=== PATIENT | female | born 1990 | race Caucasian/White ===

== ENCOUNTER 2020-05-17 09:41 | Emergency (ER) | payer OTHER, SELFPAY ==
[2020-05-17 09:45] VITALS: BP 117/82; PULSE 85; RESP 16; TEMP 36.6; O2SAT 97; BMI 49.4
--- NOTE | 2020-05-17 09:57 | ED.GENADULT ---
HPI - General Adult General Chief complaint: Abdominal Pain Stated complaint: RUQ abdominal pain started Time Seen by Provider: 05/17/20 09:46 Source: patient Mode of arrival: Ambulatory Limitations: no limitations History of Present Illness HPI narrative: Patient is a 29-year-old female here for evaluation of approximately 2 days of right upper quadrant abdominal pain. She states that moving and palpation and eating makes her symptoms worse. She has had her gallbladder removed several years ago however she states that it feels somewhat like that. No change in bowel habits. No urinary symptoms. No fevers. No skin rashes. Has not tried anything for her symptoms accepted decreasing her oral intake. Related Data Home Medications Medication Instructions Recorded Confirmed buspirone 10 mg PO TID PRN 05/17/20 05/17/20 ergocalciferol (vitamin D2) 1,250 mcg PO QWEEK 05/17/20 05/17/20 fluoxetine 80 mg PO DAILY 05/17/20 05/17/20 Allergies Allergy/AdvReac Type Severity Reaction Status Date / Time prochlorperazine Allergy Severe Shakiness Verified 05/17/20 09:58 [From Compazine] Review of Systems Constitutional Constitutional: Denies fatigue, Denies fever(s) and Denies headache(s) ENT Ears, Nose, Mouth, and Throat: Denies headache(s) Cardiovascular Cardiovascular: Denies chest pain and Denies dyspnea Respiratory Respiratory: Reports pain on inspiration and Denies dyspnea Gastrointestinal Gastrointestinal: Reports abdominal pain, Denies bloating, Denies change in bowel habits, Denies constipation, Denies diarrhea, Denies nausea and Denies vomiting Genitourinary Genitourinary: Denies dysuria Genitourinary: Denies dysuria Musculoskeletal Musculoskeletal: Denies arthralgias and Denies myalgias Integumentary/Breasts Skin/Breast: Denies rash Neurologic Neurologic: Denies behavioral changes and Denies headache(s) Psychiatric Psychiatric: Denies behavioral changes Endocrine Endocrine: Denies fatigue Hematologic/Lymphatic On Anticoagulants: No Allergic/Immunologic Allergic/Immunologic: Denies urticaria Patient History Medical History (Updated 05/17/20 @ 11:07 by Cortez Livingston DO) Anxiety Depression Surgical History (Updated 05/17/20 @ 10:00 by Yanely Hall RN) History of History of cholecystectomy Hx laparoscopic cholecystectomy Social History lives independently: Yes Smoking Status: Never smoker Exam Initial Vital Signs Initial Vital Signs: Vital Signs Temperature 97.9 F 05/17/20 09:45 Pulse Rate 85 05/17/20 09:45 Respiratory Rate 16 05/17/20 09:45 Blood Pressure 117/82 05/17/20 09:45 Pulse Oximetry 97 05/17/20 09:45 Const General: cooperative and comfortable Limitations: mental status not altered HENMT Head: normal to inspection and normocephalic Chest Chest: No crepitus and No tenderness Resp Effort & Inspection: normal respiratory effort Auscultation: clear to auscultation bilaterally Cardio Rate: regular rate Rhythm: regular rhythm GI Inspection: non-distended Palpation: soft, No firm and tender (Right upper quadrant) Back/Spine/Pelvis Back: No CVA tenderness Skin Lesions: no lesions Rashes: no rashes Neuro General: patient alert, patient awake and patient oriented x3 Cognition: normal cognition Speech: speech normal Extrem General: normal to inspection and capillary refill normal Psych Appearance: grossly normal and well kempt Scores GCS [place] coma scale eye opening: Spontaneous [place] coma scale verbal response: Orientated [place] coma scale motor response: Obey commands [place] coma scale total score: 15 Course Orders Ordered: ED Orders 05/17/20 09:57 XR abdomen 1V Stat XR chest 1V Stat 05/17/20 10:00 Complete Blood Count AUTO DIFF Stat Comprehensive Metabolic Panel Stat Lipase Stat Vital Signs Vital signs: Vital Signs - 8 hr 05/17/20 09:45 05/17/20 10:30 Temperature 97.9 F Pulse Rate 85 78 Respiratory Rate 16 16 Blood Pressure 117/82 112/73 Pulse Oximetry 97 99 Medical Decision Making Lab Data Lab results reviewed: Yes I reviewed the patient's lab results. Result diagrams: 05/17/20 10:00 05/17/20 10:00 Labs: Lab Results 05/17/20 05/17/20 Range/Units 10:00 10:00 WBC 10.7 (4.5-11.0) X10^3/uL RBC 4.84 (4.0-5.2) X10^6/uL Hgb 13.2 (12.0-16.0) g/dL Hct 39.6 (36-46) % MCV 81.9 (80-100) fL MCH 27.2 (26-34) PG MCHC 33.2 (30-36) % RDW 13.9 (11.6-14.8) % Plt Count 282 (150-400) X10^3/uL Neut % (Auto) 66.4 (50-75) % Lymph % (Auto) 23.8 L (25-40) % [place] % (Auto) 6.2 (3-14) % Eos % (Auto) 2.5 (2-4) % Baso % (Auto) 1.1 (0-2) % Neut # (Auto) 7100 H (3068-7309) /uL Lymph # (Auto) 2500 (5346-0427) /uL [place] # (Auto) 700 (0-900) /uL Eos # (Auto) 300 (0-450) /uL Baso # (Auto) 100 (0-100) /uL Sodium 137 (137-145) mmol/L Potassium 4.2 (3.4-5.1) mmol/L Chloride 102 (98-107) mmol/L Carbon Dioxide 27 (22-32) mmol/L BUN 11 (7-17) mg/dL Creatinine 0.56 (0.52-1.04) mg/dL Estimated GFR > 60.0 (>60) mL/min BUN/Creatinine Ratio 19.6 (6-22) Glucose 96 (70-100) mg/dL Calcium 9.6 (8.4-10.2) mg/dL Total Bilirubin 0.3 (0.2-1.3) mg/dL AST 18 (14-36) IU/L ALT 19 (<35) IU/L Alkaline Phosphatase 76 (38-126) U/L Total Protein 7.8 (6.3-8.2) g/dL Albumin 4.3 (3.5-5.0) g/dL Globulin 3.5 (1.7-4.1) g/dL Albumin/Globulin Ratio 1.2 (1.0-2.8) Lipase 46 (23-300) U/L Point of Care Testing Test Results Negative Urine Dip Bedside Urine Glucose Negative Bedside Urine Bilirubin - Negative Bedside Urine Ketone - Negative Urine Specific [place] 1.015 Bedside Urine Occult Blood - Negative Bedside Urine pH 6.0 Bedside Urine Protein - Negative Bedside Urine Urobilinogen - Negative Bedside Urine Nitrite - Negative Bedside Urine Leukocytes - Negative Esterase Point of care testing: Point of Care Testing Test Results Negative Urine Dip Bedside Urine Glucose Negative Bedside Urine Bilirubin - Negative Bedside Urine Ketone - Negative Urine Specific [place] 1.015 Bedside Urine Occult Blood - Negative Bedside Urine pH 6.0 Bedside Urine Protein - Negative Bedside Urine Urobilinogen - Negative Bedside Urine Nitrite - Negative Bedside Urine Leukocytes - Negative Esterase Imaging Data Chest x-ray: Radiologist's Impression: [address] [id number] ReportSigned Patient: Tessa Trinh AMR#: [id number]: 1990Acct:[id number]/Sex: 29 / FDate of Service: 05/17/20Loc: EDAccession Number: [id number] Procedure: XR chest 1V Ordering Provider: Cortez Livingston D.O. PROCEDURE: XR CHEST 1V INDICATIONS: Right lower chest pain TECHNIQUE: One view of the chest was acquired. COMPARISON: [facility] , XR ABDOMEN 1V, 05/17/2020, 10:10. FINDINGS: Surgical changes and devices: None. Lungs and pleura: An incomplete inspiratory result is noted, causing a crowded appearance to the lung markings. No focal infiltrates are seen. No pneumothorax or significant pleural effusions are seen. Mediastinum: Mediastinal contours appear normal. Heart size is normal. Bones and chest wall: No suspicious bony lesions. Overlying soft tissues appear unremarkable. IMPRESSION: Limited portable chest examination, without a significant cardiopulmonary abnormality identified. Dictated by: Arturo Mccord M.D. on 05/17/2020 at 9:17 Approved by: Arturo Mccord M.D. on 05/17/2020 at 9:18 Abdominal x-ray: Radiologist's Impression: [address] [id number] ReportSigned Patient: Tessa Trinh AMR#: [id number]: 1990Acct:[id number]/Sex: 29 / FDate of Service: 05/17/20Loc: EDAccession Number: [id number] Procedure: XR abdomen 1V Ordering Provider: Lanker,Cortez D.O. PROCEDURE: XR ABDOMEN 1V INDICATIONS: Right-sided abdominal pain TECHNIQUE: One view of the abdomen acquired. COMPARISON: [facility], CR, XR CHEST 1V, 05/17/2020, 10:10. FINDINGS: Surgical changes and devices: None. Bowel: Bowel gas pattern is normal. Soft tissues: No suspicious abdominal calcifications. Visualized solid organ contours appear normal in size. Bones: No suspicious bony lesions. IMPRESSION: A nonobstructive bowel gas pattern is seen. If clinically appropriate, please consider a repeat plain film study or a dedicated CT of the abdomen and pelvis, if the patient's symptoms persist or worsen. Dictated by: Arturo Mccord M.D. on 05/17/2020 at 9:19 Approved by: Arturo Mccord M.D. on 05/17/2020 at 9:20 MDM Narrative Medical decision making narrative: Patient's labs are unremarkable, her x-rays are unremarkable, she does have a mild right upper quadrant tenderness without rebound or guarding. She has had her gallbladder removed. I feel given her labs and clinical presentation today that a retained common bile duct stone is unlikely. I feel we can hold on CT scan is I feel that another intra-abdominal surgical issue is present given her presentation. Feel we can also hold on right upper quadrant ultrasound. She has no signs of pneumonia. No skin changes of the concerning for zoster. She does have a history of reflux disease and stomach ulcers. This could be a gastric/duodenal ulcer given its location. We did discuss the use of reflux medications. I did inform her that I was not 100% convinced of this specific diagnosis but is not unreasonable to try these medications over the next couple days to see if it does not improve things. She was given strict return precautions and follow-up instructions. She expressed understanding and agreement. Discharge Plan Departure Patient Disposition: Home Clinical Impression: Abdominal pain Instructions: DI for Abdominal Pain-Adult Activity Restrictions/Additional Instructions: Your x-rays and labs today were very reassuring. I do recommend that you start taking a reflux medication called famotidine/Pepcid. You can purchase this [id number]. It is a 1 time a day medication. I do recommend that you take it on a daily basis for the next several days. Contact your primary provider for a follow-up. If her symptoms worsen or you develop new symptoms or fevers please return to the emergency department for further evaluation. Prescriptions: No Action fluoxetine 40 mg capsule 80 mg PO DAILY RF: 0 buspirone 10 mg tablet 10 mg PO TID PRN (Reason: Anxiety) RF: 0 ergocalciferol (vitamin D2) 1,250 mcg (50,000 unit) capsule 1,250 mcg PO QWEEK RF: 0
[2020-05-17 10:08] LABS: Add Manual Diff / Slide Review NO; Basophils Absolute Auto 100 /uL (0-100); Basophils Percent Auto 1.1 % (0-2); Eosinophils Absolute Auto 300 /uL (0-450); Eosinophils Percent Auto 2.5 % (2-4); Hematocrit 39.6 % (36-46); Hemoglobin 13.2 g/dL (12.0-16.0); Lymphocytes Absolute Auto 2500 /uL (1100-4500); Lymphocytes Percent Auto 23.8 % (25-40); Mean Corpuscular HGB Conc 33.2 % (30-36); Mean Corpuscular Hemoglobin 27.2 PG (26-34); Mean Corpuscular Volume 81.9 fL (80-100); Monocytes Absolute Auto 700 /uL (0-900); Monocytes Percent Auto 6.2 % (3-14); Neutrophils Absolute Auto 7100 /uL (1500-7000); Neutrophils Percent Auto 66.4 % (50-75); Platelet Count 282 X10^3/uL (150-400); Red Blood Cell Count 4.84 X10^6/uL (4.0-5.2); Red Cell Distribution Width 13.9 % (11.6-14.8); White Blood Cell Count 10.7 X10^3/uL (4.5-11.0)
[2020-05-17 10:20] LABS: Alanine Aminotransferase 19 IU/L (<35); Albumin 4.3 g/dL (3.5-5.0); Albumin Globulin Ratio 1.2 (1.0-2.8); Alkaline Phosphatase 76 U/L (38-126); Aspartate Aminotransferase 18 IU/L (14-36); BUN Creatinine Ratio 19.6 (6-22); Bilirubin Total 0.3 mg/dL (0.2-1.3); Blood Urea Nitrogen 11 mg/dL (7-17); Calcium 9.6 mg/dL (8.4-10.2); Carbon Dioxide 27 mmol/L (22-32); Chloride 102 mmol/L (98-107); Estimated Glomerular Filt Rate > 60.0 mL/min (>60); Globulin 3.5 g/dL (1.7-4.1); Glucose 96 mg/dL (70-100); HEMOLYSIS < 15 (0-50); Lipase 46 U/L (23-300); Potassium 4.2 mmol/L (3.4-5.1); Sodium 137 mmol/L (137-145); Total Protein 7.8 g/dL (6.3-8.2)
[2020-05-17 10:30] VITALS: BP 112/73; PULSE 78; RESP 16; O2SAT 99
== END 2020-05-17 11:20 | disposition home or self-care (01) ==
PROVIDERS: Emergency Provider Emergency Medicine
DX: R10.11 Right upper quadrant pain (principal); R07.9 Chest pain, unspecified
CPT/HCPCS: 36415; 71045; 74018; 80053; 81003; 81025; 83690; 85025; 99284